=== PATIENT | male | born 1935 | race African-American/Black ===

== ENCOUNTER 2017-04-21 10:31 | Inpatient (IN) | payer BC, OTHER ==
[~2017-04-21] VITALS: Ht 177.8 cm; Wt 79.8 kg
[2017-04-21] MEDS ORDERED: ATOR20TA65 PO (10:36)
[2017-04-21 11:08] LABS: MEAN CORPUSCULAR HEMOGLOBIN 30.1 pg (28.0-32.0); MEAN CORPUSCULAR VOLUME 89.8 fL (80.0-94.0); MEAN PLATELET VOLUME 11.3 fl (7.4-10.4); RED BLOOD CELL COUNT 1.15 mill/uL (4.7-6.1)
[2017-04-21 11:12] LABS: HEMOGLOBIN. 3.5 g/dL (14.0-18.0)
[2017-04-21 11:13] LABS: HEMATOCRIT. 10.3 % (42.0-52.0); PLATELET 33 x1000/uL (130-400)
[2017-04-21 11:18] LABS: CARBON DIOXIDE 21 mEq/L (21-32); CHLORIDE 114 mEq/L (98-107)
[2017-04-21 11:24] LABS: TROPONIN I < 0.02 ng/mL (0.00-0.04)
[2017-04-21 11:37] LABS: PLATELET ESTIMATE MARKEDLY DECREASED
[2017-04-21] MEDS ORDERED: OSELTAMIVIR 75MG CAPSULE PO ONE (17:30)
[2017-04-21 18:52] LABS: MEAN CORPUSCULAR HEMOGLOBIN 30.6 pg (28.0-32.0); MEAN CORPUSCULAR VOLUME 89.4 fL (80.0-94.0); MEAN PLATELET VOLUME 10.4 fl (7.4-10.4); RED BLOOD CELL COUNT 1.55 mill/uL (4.7-6.1); RED CELL DISTRIBUTION WIDTH 14.3 % (11.6-14.6)
[2017-04-21 18:54] LABS: HEMATOCRIT. 13.8 % (42.0-52.0); HEMOGLOBIN. 4.7 g/dL (14.0-18.0); PLATELET 26 x1000/uL (130-400)
[2017-04-21 19:37] LABS: NUCLEATED RED BLOOD CELLS 2 /100 WBC; PLATELET ESTIMATE MARKEDLY DECREASED
[2017-04-21 21:00] VITALS: BP 113/51
[2017-04-21 22:00] VITALS: BP 123/50
[2017-04-21] MEDS ORDERED: EPOETIN ALFA 10000UNITS/ML VIAL SUBCUT NR (22:00)
[2017-04-21] MEDS: OSELTAMIVIR 75MG CAPSULE PO SCH (23:38)
[2017-04-21] MEDS: FAMOTIDINE 20MG/2ML VIAL IV SCH (23:38)
[2017-04-22] VITALS (19 sets, daily range): BP systolic 91–135; BP diastolic 46–59
[2017-04-22] MEDS: OSELTAMIVIR 75MG CAPSULE PO SCH (09:16)
[2017-04-22] MEDS: FAMOTIDINE 20MG/2ML VIAL IV SCH (09:16)
[2017-04-22 09:58] LABS: MEAN CORPUSCULAR HEMOGLOBIN 29.1 pg (28.0-32.0); MEAN CORPUSCULAR VOLUME 84.8 fL (80.0-94.0); RED BLOOD CELL COUNT 2.44 mill/uL (4.7-6.1); RED CELL DISTRIBUTION WIDTH 16.2 % (11.6-14.6)
[2017-04-22 10:05] LABS: HEMATOCRIT. 20.7 % (42.0-52.0); PLATELET 25 x1000/uL (130-400)
[2017-04-22 10:06] LABS: HEMOGLOBIN. 7.1 g/dL (14.0-18.0)
[2017-04-22 10:17] LABS: CARBON DIOXIDE 25 mEq/L (21-32); CHLORIDE 110 mEq/L (98-107)
[2017-04-22] MEDS ORDERED: EPOETIN ALFA 10000UNITS/ML VIAL SUBCUT NR (11:00)
[2017-04-22] MEDS ORDERED: TAM75 PO (16:09)
[2017-04-22 16:33] LABS: PLATELET ESTIMATE MARKEDLY DECREASED
[2017-04-22 17:06] LABS: HEMATOCRIT. 23.4 % (42.0-52.0); MEAN CORPUSCULAR HEMOGLOBIN 29.5 pg (28.0-32.0); MEAN CORPUSCULAR VOLUME 85.9 fL (80.0-94.0); MEAN PLATELET VOLUME 9.8 fl (7.4-10.4); RED BLOOD CELL COUNT 2.73 mill/uL (4.7-6.1); RED CELL DISTRIBUTION WIDTH 16.1 % (11.6-14.6)
[2017-04-22 17:14] LABS: PLATELET 26 x1000/uL (130-400)
[2017-04-22 17:31] LABS: PLATELET ESTIMATE MARKEDLY DECREASED
== END 2017-04-22 18:00 | disposition home or self-care (01) | DRG 835 ==
LOC: ER 10:31 → 5WST 12:12 → ENRESERV 20:06
PROVIDERS: ADMIT Internal Medicine Critical Care Medicine; ATTEND Internal Medicine Critical Care Medicine
PROC: 30233N1 Transfusion of Nonautologous Red Blood Cells into Peripheral Vein, Percutaneous Approach (ICD-10-PCS; principal; 2017-04-21)
DX: C92.00 Acute myeloblastic leukemia, not having achieved remission (principal); D61.818 Other pancytopenia; J44.9 Chronic obstructive pulmonary disease, unspecified; E78.5 Hyperlipidemia, unspecified; I10 Essential (primary) hypertension; J10.1 Influenza due to other identified influenza virus with other respiratory manifestations; T45.1X5A Adverse effect of antineoplastic and immunosuppressive drugs, initial encounter; Z96.641 Presence of right artificial hip joint; Z66 Do not resuscitate; Z87.891 Personal history of nicotine dependence
CPT/HCPCS: 36415; 70450; 71045; 80053; 82247; 82248; 83010; 83615; 83880; 84484; 85007; 85025; 85027; 86850; 86880; 86900; 86920; 87804; 93005; 99285; J0885; J3490; J7040; J7050; P9016; P9021

== ENCOUNTER 2017-04-28 08:46 | Emergency (ER) | payer BC, OTHER ==
[~2017-04-28] VITALS: Ht 175.3 cm; Wt 67.0 kg
[~2017-04-28 08:46] MED LIST: TAM75 PO
[2017-04-28] MEDS ORDERED: SODIUM CHLORIDE 0.9% 1,000 ML IV ONE (09:32)
[2017-04-28 09:56] LABS: CLARITY URINE CLOUDY (CLEAR); COLOR URINE YELLOW (YELLOW); KETONES URINE NEGATIVE (NEGATIVE); LEUKOCYTE ESTERASE URINE 2+ (NEGATIVE); NITRITE URINE NEGATIVE (NEGATIVE); OCCULT BLOOD URINE 1+ (NEGATIVE); PH URINE 7.5 (4.5-8.0); PROTEIN URINE NEGATIVE (NEGATIVE); SPECIFIC GRAVITY URINE 1.015 (1.005-1.030)
[2017-04-28 09:56] LABS: MEAN CORPUSCULAR VOLUME 89.3 fL (80.0-94.0); MEAN PLATELET VOLUME 10.1 fl (7.4-10.4); RED BLOOD CELL COUNT 1.06 mill/uL (4.7-6.1); RED CELL DISTRIBUTION WIDTH 15.4 % (11.6-14.6)
[2017-04-28 10:01] LABS: CHLORIDE 110 mEq/L (98-107); HEMATOCRIT. 9.5 % (42.0-52.0); HEMOGLOBIN. 3.2 g/dL (14.0-18.0); PLATELET 40 x1000/uL (130-400)
[2017-04-28 10:03] LABS: INR 1.1; PROTHROMBIN TIME 11.9 sec (9.4-11.6)
[2017-04-28] MEDS ORDERED: LEVOFLOXACIN 500MG PREMIX 100 ML IV ONE (10:45)
[2017-04-28 11:17] LABS: PLATELET ESTIMATE MARKEDLY DECREASED
[2017-04-28 17:01] VITALS: BP 141/62
== END 2017-04-28 17:22 | disposition left against medical advice (07) ==
LOC: ER 09:19 → SUPCPDRO 11:51 → CANRESERV 12:48 → ENRESERV 12:48 → ER 17:22 → CANBEDREQ 18:22
DX: D61.810 Antineoplastic chemotherapy induced pancytopenia (principal); N28.9 Disorder of kidney and ureter, unspecified; N30.00 Acute cystitis without hematuria; C92.00 Acute myeloblastic leukemia, not having achieved remission; D64.89 Other specified anemias; Z92.21 Personal history of antineoplastic chemotherapy; F17.210 Nicotine dependence, cigarettes, uncomplicated; Z88.0 Allergy status to penicillin; Z66 Do not resuscitate
CPT/HCPCS: 36415; 36430; 71045; 80053; 81001; 82247; 83010; 83615; 85025; 85610; 86850; 86900; 86901; 86920; 93005; 96361; 96365; 99285; J1956; J7030; P9016; Z7610